=== PATIENT | female | born 1945 | race Hispanic/Latino ===

== ENCOUNTER 2024-11-21 20:23 | Inpatient (IN) | payer MEDICARE ==
[~2024-11-21] VITALS: Ht 157.5 cm; Wt 46.7 kg
[2024-11-21 20:43] LABS: BASOPHILS % 0.3 % (0.0-1.0); EOSINOPHILS % 0.3 % (0.0-6.0); LYMPHOCYTES % 23.2 % (18.0-39.1); MONOCYTES % 11.5 % (4.4-11.3); NEUTROPHILS % 64.4 % (38.7-80.0); RED CELL DISTRIBUTION WIDTH 12.5 % (11.7-14.4)
[2024-11-21] MEDS: SODIUM CHLORIDE 0.9% 1000ML 1,000 ML IV STA (20:46)
[2024-11-21 20:58] LABS: INR 2.12
[2024-11-21 21:01] LABS: EST GLOMERULAR FILTRATION RATE 91.0 ML/MIN (>=60)
[2024-11-21 22:04] VITALS: TEMP 98.4
[2024-11-21] MEDS: HYDRALAZINE HCL 20 MG/ML VIAL IV PRN (22:20)
[2024-11-21 22:55] VITALS: PULSE 88; RESP 18
[2024-11-21] MEDS ORDERED: ONDANSETRON HCL INJ 2MG/ML 2ML 2 MG/ML VIAL IV PRN (23:00)
[2024-11-21] MEDS ORDERED: Morphine 4mg INJECTION 4 MG/ML INJ IV PRN (23:00)
[2024-11-22] VITALS (12 sets, daily range): BP systolic 142–169; BP diastolic 66–85; PULSE 64–121; RESP 16–19; TEMP 97.8–98.2; O2SAT 96–100
[2024-11-22] MEDS: SODIUM CHLORIDE 0.9% 1000ML 1,000 ML IV SCH (01:41)
[2024-11-22 04:33] LABS: LEUKOCYTE ESTERASE ,URINE 1+ (NEGATIVE); PROTEIN,URINE DIPSTICK NEGATIVE (NEGATIVE); URINE UROBILINOGEN 1 mg/dL (0.2 - 1)
[2024-11-22 04:43] LABS: WBC,URINE (MAN) 21-50 /HPF (0-5)
[2024-11-22 04:44] LABS: CALCIUM OXALATE CRYSTALS,UR FEW (FEW); EPITHELIAL CELLS,URINE MODERATE /LPF
[2024-11-22 05:44] LABS: BASOPHILS % 0.2 % (0.0-1.0); EOSINOPHILS % 0.5 % (0.0-6.0); LYMPHOCYTES % 21.5 % (18.0-39.1); MONOCYTES % 9.3 % (4.4-11.3); NEUTROPHILS % 68.5 % (38.7-80.0); RED CELL DISTRIBUTION WIDTH 12.5 % (11.7-14.4)
[2024-11-22 06:45] LABS: EST GLOMERULAR FILTRATION RATE 98.0 ML/MIN (>=60)
[2024-11-22] MEDS ORDERED: SIMVASTATIN40 MG PO (06:56)
[2024-11-22] MEDS ORDERED: XARELTO20 MG (06:56)
[2024-11-22] MEDS ORDERED: METOPROLOL TART25 MG PO (06:58)
[2024-11-22] MEDS: POTASSIUM CHLORIDE 20 MEQ TAB CR PO ONE (07:14)
[2024-11-22] MEDS ORDERED: LIDOCAINE 4% PATCH TP PRN (10:45)
[2024-11-22] MEDS ORDERED: DEXTROSE 50% SYRINGE 50 ML IV PRN (10:45)
[2024-11-22] MEDS ORDERED: SIMETHICONE 80 MG CHEW PO PRN (10:45)
[2024-11-22] MEDS ORDERED: ACETAMINOPHEN 325 MG TAB PO PRN (10:45)
[2024-11-22] MEDS ORDERED: DIPHENHYDRAMINE HCL 25 MG CAP PO PRN (10:45)
[2024-11-22] MEDS ORDERED: ALBUTEROL/IPRATROPIUM 3 ML NEB NEB PRN (10:45)
[2024-11-22] MEDS ORDERED: DOCUSATE SODIUM 100 MG CAP PO PRN (10:45)
[2024-11-22] MEDS ORDERED: HYDRALAZINE HCL 20 MG/ML VIAL IV PRN (10:45)
[2024-11-22] MEDS ORDERED: BENZONATATE 100 MG CAP PO PRN (10:45)
[2024-11-22] MEDS: POTASSIUM CHLORIDE 20 MEQ TAB CR PO STA (11:36)
[2024-11-22] MEDS ORDERED: ENOXAPARIN SOD INJ 40 MG/0.4 ML SYR SC SCH (17:00)
[2024-11-22] MEDS ORDERED: MULTIVITAMINS- 12 INJECTION 10 ML, FOLIC ACID MDV 1 MG, THIAMINE HCL INJ 100 MG in SODI... IV ONE (18:00)
[2024-11-22] MEDS: METOPROLOL TARTRATE 25 MG TAB PO SCH (18:19)
[2024-11-22] MEDS: LOSARTAN POTASSIUM 100 MG TAB PO SCH (18:19)
[2024-11-22] MEDS: MULTIVITAMINS- 12 INJECTION 10 ML, FOLIC ACID MDV 1 MG, THIAMINE HCL INJ 100 MG in SODI... IV SCH (18:41)
[2024-11-22] MEDS: SIMVASTATIN 40 MG TAB PO SCH (21:13)
[2024-11-23] VITALS (15 sets, daily range): BP systolic 90–150; BP diastolic 56–87; PULSE 54–148; RESP 16–22; TEMP 96.7–98.1; O2SAT 95–100
[2024-11-23] MEDS: MIDODRINE 2.5 MG TAB PO STA (00:29)
[2024-11-23] MEDS: SODIUM CHLORIDE 0.9% 1000ML 1,000 ML IV STA (00:34)
[2024-11-23] MEDS: SODIUM CHLORIDE 0.9% 1000ML 1,000 ML ONE (00:36)
[2024-11-23] MEDS: METOPROLOL SUCCINATE 25 MG TAB XL PO STA (01:43)
[2024-11-23] MEDS: METOPROLOL TARTRATE INJ 1 MG/ML VIAL IV ONE (01:43)
[2024-11-23] MEDS ORDERED: SODIUM CHLORIDE 0.9% 1000ML 1,000 ML IV SCH (04:00)
[2024-11-23 06:24] LABS: PHOSPHORUS 2.6 MG/DL (2.3-4.7)
[2024-11-23] MEDS ORDERED: RIVAROXABAN 20 MG TABLET PO SCH (09:00)
[2024-11-23] MEDS: APIXABAN 5 MG TABLET PO SCH (09:31)
[2024-11-23] MEDS: AMIODARONE HCL 200 MG TAB PO SCH (09:31)
[2024-11-23] MEDS: PANTOPRAZOLE SOD 40 MG TABEC PO SCH (09:31)
[2024-11-23] MEDS: METOPROLOL TARTRATE 25 MG TAB PO SCH (09:33)
[2024-11-23 09:44] LABS: EST GLOMERULAR FILTRATION RATE 92.0 ML/MIN (>=60)
[2024-11-23] MEDS: POTASSIUM CHLORIDE 20 MEQ TAB CR PO PRN (17:27)
[2024-11-23] MEDS: POTASSIUM CHLORIDE 20 MEQ TAB CR PO STA (17:27)
[2024-11-23] MEDS: CRESTOR 10MG PO SCH (22:25)
[2024-11-23] MEDS: MELATONIN 5 MG TABLET PO PRN (22:25)
[2024-11-24] VITALS (7 sets, daily range): BP systolic 121–179; BP diastolic 65–80; PULSE 56–82; RESP 16–22; TEMP 97.2–98.4; O2SAT 95–100
[2024-11-24] MEDS: METOPROLOL SUCCINATE 25 MG TAB XL PO SCH (08:24)
[2024-11-24] MEDS: MAGNESIUM SULFATE 2GM/50ML 50 ML IV ONE ×2 (09:18→12:59)
[2024-11-24 09:37] LABS: EST GLOMERULAR FILTRATION RATE 93.0 ML/MIN (>=60)
[2024-11-24] MEDS: POTASSIUM CHLORIDE 20 MEQ TAB CR PO ONE ×2 (10:51→12:59)
[2024-11-25] VITALS (10 sets, daily range): BP systolic 147–175; BP diastolic 69–79; PULSE 58–68; RESP 17–18; TEMP 97.7–98.3; O2SAT 96–100
[2024-11-25] MEDS: SODIUM CHLORIDE 0.9% 1000ML 1,000 ML IV PRN (08:42)
[2024-11-25] MEDS: APIXABAN 5 MG TABLET PO SCH (17:37)
[2024-11-25] MEDS: DOCUSATE SODIUM 100 MG CAP PO SCH (17:37)
[2024-11-25] MEDS: LACTULOSE SYRUP 20 GM/30 ML UDC PO SCH (17:37)
[2024-11-25] MEDS: MIRTAZAPINE 15 MG TAB PO SCH (21:47)
[2024-11-26] VITALS (7 sets, daily range): BP systolic 145–172; BP diastolic 63–81; PULSE 58–66; RESP 17–19; TEMP 97.4–98.2; O2SAT 97–100
[2024-11-26] MEDS: AMIODARONE HCL 200 MG TAB PO SCH (09:06)
[2024-11-26] MEDS: LOSARTAN POTASSIUM 100 MG TAB PO ONE (17:49)
[2024-11-27] VITALS (7 sets, daily range): BP systolic 130–175; BP diastolic 68–89; PULSE 64–73; RESP 16–20; TEMP 97.7–98.7; O2SAT 98–100
[2024-11-27] MEDS: LOSARTAN POTASSIUM 100 MG TAB PO SCH (09:09)
[2024-11-27 15:30] LABS: BASOPHILS % 0.2 % (0.0-1.0); EOSINOPHILS % 0.8 % (0.0-6.0); LYMPHOCYTES % 15.4 % (18.0-39.1); MONOCYTES % 6.8 % (4.4-11.3); NEUTROPHILS % 76.4 % (38.7-80.0); RED CELL DISTRIBUTION WIDTH 12.8 % (11.7-14.4)
[2024-11-27 16:02] LABS: EST GLOMERULAR FILTRATION RATE 66.0 ML/MIN (>=60)
[2024-11-27] MEDS: POTASSIUM CHLORIDE 20 MEQ TAB CR PO ONE (20:59)
[2024-11-28] VITALS (8 sets, daily range): BP systolic 141–164; BP diastolic 70–86; PULSE 63–69; RESP 16–20; TEMP 97.4–98.7; O2SAT 97–100
[2024-11-28 05:35] LABS: EST GLOMERULAR FILTRATION RATE 91.0 ML/MIN (>=60)
[2024-11-28] MEDS: MAGNESIUM SULFATE 2GM/50ML 50 ML IV SCH (08:00)
[2024-11-28] MEDS: POTASSIUM CHLORIDE 20MEQ/100ML 100 ML IV ONE (09:37)
[2024-11-28] MEDS: POTASSIUM CHLORIDE 20 MEQ TAB CR PO ONE (09:37)
[2024-11-28] MEDS: MAGNESIUM OXIDE 400 MG TAB PO SCH (11:53)
[2024-11-28] MEDS: AMLODIPINE BESYLATE 10 MG TAB PO SCH (14:45)
== END 2024-11-28 18:40 | disposition home or self-care (01) | DRG 280 ==
LOC: ER 20:30 → ERHOLD 23:05 → MED/SURG2 11-22 00:06
PROVIDERS: ADMIT Internal Medicine; ATTEND Internal Medicine
DX: I48.0 Paroxysmal atrial fibrillation (principal); E43 Unspecified severe protein-calorie malnutrition; I21.A1 Myocardial infarction type 2; G93.41 Metabolic encephalopathy; Z68.1 Body mass index [BMI] 19.9 or less, adult; F03.93 Unspecified dementia, unspecified severity, with mood disturbance; F03.92 Unspecified dementia, unspecified severity, with psychotic disturbance; N39.0 Urinary tract infection, site not specified; I50.32 Chronic diastolic (congestive) heart failure; I16.0 Hypertensive urgency; I48.20 Chronic atrial fibrillation, unspecified; R62.7 Adult failure to thrive; E87.6 Hypokalemia; R53.1 Weakness; I25.10 Atherosclerotic heart disease of native coronary artery without angina pectoris; I11.0 Hypertensive heart disease with heart failure; E83.42 Hypomagnesemia; K59.00 Constipation, unspecified; E78.5 Hyperlipidemia, unspecified; Z87.891 Personal history of nicotine dependence; Z91.148 Patient's other noncompliance with medication regimen for other reason; Z91.048 Other nonmedicinal substance allergy status; Z79.01 Long term (current) use of anticoagulants; Z91.041 Radiographic dye allergy status; Z85.9 Personal history of malignant neoplasm, unspecified; Z90.49 Acquired absence of other specified parts of digestive tract
CPT/HCPCS: 36415; 70450; 70551; 71045; 71250; 74176; 80048; 80053; 81001; 82550; 82607; 82948; 83036; 83690; 83735; 83880; 84100; 84132; 84443; 84484; 85025; 85610; 87040; 87086; 93005; 93306; 94799; 99284; J0360; J0696; J2470; J3411; J3475; J3480; J7030